=== PATIENT | female | born 1970 | race American Indian/Alaskan Native ===

== ENCOUNTER 2021-10-27 09:26 | Outpatient (CLI) | payer OTHER ==
--- NOTE | 2021-10-27 12:28 | Vascular Lab Report ---
DUPLEX DOPPLER LOWER EXTREMITY VEINS, RIGHT INDICATION / CLINICAL INFORMATION: rle pain. TECHNIQUE: Duplex doppler imaging was performed through the veins of the right lower extremity using venous compression and other maneuvers. COMPARISON: None available. FINDINGS: RIGHT COMMON FEMORAL VEIN: Negative. RIGHT FEMORAL VEIN: Negative. RIGHT POPLITEAL VEIN: Negative. RIGHT CALF VEINS: Negative. ADDITIONAL FINDINGS: None. IMPRESSION: 1. No sonographic evidence for DVT in the right lower extremity. Scribed by: Devi Soriano RDMS, RVT Scribed: 10/27/2021 10:33 AM I have reviewed the images, agree with this report, and edited this report as needed. Signer Name: Nba Rollins MD Signed: 10/27/2021 12:22 PM Workstation Name: [id number]
== END 2021-10-27 09:27 | disposition home or self-care (01) ==
LOC: VAS 09:26
PROVIDERS: ATTEND Podiatrist Foot & Ankle Surgery
DX: M79.662 Pain in left lower leg (principal); M79.89 Other specified soft tissue disorders